=== PATIENT | male | born 1970 | race Caucasian/White ===

== ENCOUNTER 2016-09-15 08:23 | Day surgery (SDC) | payer OTHER ==
[2016-09-04 12:24] LABS: HEMATOCRIT 41.1 % (40.0-51.0); HEMOGLOBIN 14.5 g/dL (13.6-17.8)
[2016-09-04 12:39] LABS: BUN (BLOOD UREA NITROGEN) 15 MG/DL (6-23); CALCIUM, SERUM 8.9 MG/DL (8.5-10.4); CHLORIDE, SERUM 102 MMOL/L (96-112); CO2 (CARBON DIOXIDE) 30 MMOL/L (24-34); CREATININE 0.86 MG/DL (0.70-1.30); GFR AFRICAN AMERICAN 121 ML/MIN (>=60); GFR NON AFRICAN AMERICAN 104 ML/MIN (>=60); GLUCOSE, SERUM 92 MG/DL (60-99); POTASSIUM, SERUM 4.3 MMOL/L (3.5-5.3); SODIUM, SERUM 137 MMOL/L (135-148)
--- NOTE | ~2016-09-15 | OP ---
Record Of Operation [facility] [address] [place]. [address] NAME: GRIS MARION JR : 68 STATUS : [facility]#: [id number] AGE: 45 ADM/REG DATE : 09/15/16 MR#: [id number] REPORT SERV DATE: 09/15/16 DICTATED BY: TRAVIS ABRAHAM DATE: 09/15/16 REPORT STATUS : Draft TRANSCRIBED BY: MODLinh DATE: 09/15/16 DATE OF PROCEDURE: 09/15/2016 PREOPERATIVE DIAGNOSES: 1. Reducible right inguinal hernia. 2. Hypertension. POSTOPERATIVE DIAGNOSES: 1. Reducible indirect bilateral inguinal hernias. 2. Hypertension. PROCEDURE: Robotic reducible indirect bilateral inguinal hernia repairs with mesh. ANESTHESIA: General. 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 COMPLICATIONS: None. DRAINS: None. ESTIMATED BLOOD LOSS: 20 mL. FINDINGS: The patient was noted to have right greater than left indirect inguinal hernias that were reducible. OPERATIVE TECHNIQUE: The patient was brought to the operating room and placed on the table in supine position. He voided prior to the procedure. He had sequential hose in place and had preoperative IV antibiotics. He underwent general endotracheal anesthesia and was prepped and draped in sterile fashion and a time-out was completed. Local anesthesia was instilled to the supraumbilical skin. A 15 blade knife was used to make an incision and the Veress needle was inserted and a water drop test safely performed. 15 mm of pneumoperitoneum was obtained. The 12 mm trocar was then inserted through the incision and the camera was inserted. There was no evidence of Veress or trocar injury. The patient was then placed in Trendelenburg and two 8 mm trocars were placed parallel to the first trocar site under direct visualization. The patient was noted to have bilateral indirect inguinal hernias visually and this was confirmed. The patient then had 2 ProGrip meshes prepared and placed under direct visualization into the abdomen. The peritoneum was scored at the anterior iliac spine on the right and carried to the median umbilical ligament just to divide the posterior peritoneum. The preperitoneal space was entered and at the median umbilical ligament dissection continued inferiorly toward Ricardo's ligament, however, was clearly identified. Dissection continued using blunt dissection to the iliopubic tract. Transversus arch and pubic tubercle were identified past midline on the left side from the right. The dissection continued over the cord structures with care taken not to injure the inferior epigastric vessels from medial to lateral and the dissection continued laterally using blunt dissection to dissect the peritoneal sac away. Care was taken not to dissect Record Of Operation [facility] [address] [place]. [address] NAME: GRIS MARION JR : 68 STATUS : [facility]#: [id number] AGE: 45 ADM/REG DATE : 09/15/16 MR#: [id number] REPORT SERV DATE: 09/15/16 DICTATED BY: TRAVIS ABRAHAM DATE: 09/15/16 REPORT STATUS : Draft TRANSCRIBED BY: MODL DATE: 09/15/16 beneath the iliopubic tract laterally to help prevent cutaneous nerve injury. Using blunt dissection, the entire peritoneum was reduced laterally. The patient on the right side did not have a lipoma of the cord. There was a large indirect inguinal hernia sac. It was carefully identified and elevated and dissected away from the cord structures that were identified and preserved throughout the procedure. It was reduced until it was several centimeters proximal to where the vas joined the neurovascular structures of the cord. This was confirmed visually. The ProGrip mesh was then positioned and opened and the suture was left in the right pelvis. The mesh was secured using opening of the mesh from iliopubic tract proximally and distally to cover the entire myopectineal space. At this point, attention was turned to the left side and the dissection proceeded exactly as described for the right and in addition the two leaves of the mesh were reapproximated and overlapped medially. There was no evidence of any space in the pelvic floor that was not covered with mesh at this point. After the mesh was placed and both the hernias reduced, the operative field was examined. There was some bleeding from a branch of the left inferior epigastric vein. This was clipped with three clips left in situ to control the bleeding. The artery was identified and preserved and was intact. The peritoneum was then reapproximated with a single 2-0 V-Loc suture to close both defects with a single suture. The extra suture was removed from the left side. Both needles and sutures were removed under direct visualization. Examination of the abdomen revealed no evidence of any other abnormalities. All the instruments and trocars were removed under direct visualization as the pneumoperitoneum was aspirated after suture passer was used to close the supraumbilical trocar site. The skin edges were then reapproximated using interrupted subcuticular Monocryl sutures followed by Dermabond. He tolerated the procedure well, was extubated, and taken to the recovery room in stable condition. All sponge and needle counts were reported correct. HAKEEM/KARIN Travis Abraham M.D. / [id number] CC: Dianne Falk RALPH ALICIA
[~2016-09-15 08:23] MED LIST: DIOVAN HCT PO; FLOMAX4 PO; [UNRECOGNIZED DRUG - OTHER] PO
== END 2016-09-15 17:14 | disposition home or self-care (01) ==
LOC: SDC 08:23
PROVIDERS: Surgery
PROC: 0YUA4JZ Supplement Bilateral Inguinal Region with Synthetic Substitute, Percutaneous Endoscopic Approach (ICD-10-PCS; principal; 2016-09-15 10:00)
DX: K40.90 Unilateral inguinal hernia, without obstruction or gangrene, not specified as recurrent (principal); I10 Essential (primary) hypertension; K21.9 Gastro-esophageal reflux disease without esophagitis; N40.0 Benign prostatic hyperplasia without lower urinary tract symptoms; Z87.891 Personal history of nicotine dependence; Z87.442 Personal history of urinary calculi; Z90.89 Acquired absence of other organs; Z90.49 Acquired absence of other specified parts of digestive tract; Z98.890 Other specified postprocedural states; Z79.899 Other long term (current) drug therapy
CPT/HCPCS: 80048; 85014; 85018; 93005; A9270-GY; C1781; J0461; J0690; J2250; J2405; J2550; J2710; J3010